=== PATIENT | male | born 1975 | race Caucasian/White ===

== ENCOUNTER 2020-05-23 05:04 | Day surgery (SDC) | payer BC ==
[2020-05-18 14:01] VITALS: BMI 25.8
[2020-05-23 10:53] VITALS: TEMP 97.9
[2020-05-23 11:17] VITALS: BP 107/69; PULSE 72
--- NOTE | 2020-05-24 15:33 | PATH ---
Surgical Pathology Report Patient Name: CARLOS ENRIQUE SHAIKH [facility]. Rec. #: [id number] /Age/Gender: 1975 (Age: 44) / M Account: [id number] Location: U-ENDOSCOPY Taken: 05/23/2020 Received: 05/23/2020 Reported: 05/24/2020 Physicians: Matteo Vera D.O. Specimen(s) Received A: GASTRIC POLYP B: ANTRUM, ANGULARIS C: BODY STOMACH Clinical History Abdominal pain Postoperative diagnosis: Gastric polyp, gastritis Final Diagnosis A. GASTRIC POLYP, BIOPSY: POLYPOID GASTRIC MUCOSA WITH FOCAL DILATED GLANDS AND MILD CHRONIC GASTRITIS. IMMUNOSTAIN FOR H. PYLORI IS NEGATIVE. NEGATIVE FOR INTESTINAL METAPLASIA. B. ANTRUM / ANGULARIS, BIOPSY: GASTRIC MUCOSA WITH MILD CHRONIC GASTRITIS. IMMUNOSTAIN FOR H. PYLORI IS NEGATIVE. NEGATIVE FOR INTESTINAL METAPLASIA. C. BODY, STOMACH, BIOPSY: GASTRIC MUCOSA WITH MILD CHRONIC GASTRITIS. IMMUNOSTAIN FOR H. PYLORI IS NEGATIVE. NEGATIVE FOR INTESTINAL METAPLASIA. Electronically Signed Rasta Rodriguez M.D. Gross Description A. Received in formalin, labeled "biopsy gastric polyp" is a jauregui, irregular portion of soft tissue measuring 0.4 cm. in greatest dimension. The specimen is submitted in toto in one cassette. B. Received in formalin, labeled "biopsy antrum/angularis" are 3 jauregui, irregular portions of soft tissue ranging from 0.1-0.5 cm. in greatest dimension. The specimens are submitted in toto in one cassette. C. Received in formalin, labeled "biopsy body of stomach" are 2 jauregui, irregular portions of soft tissue measuring 0.1 and 0.4 cm. in greatest dimension. The specimens are submitted in toto in one cassette. DL/05/23/2020 saudi/05/23/2020
== END 2020-05-23 12:10 | disposition home or self-care (01) ==
LOC: JASU-ENDO 05:04
PROVIDERS: ATTEND Internal Medicine Gastroenterology
PROC: 0DB78ZX Excision of Stomach, Pylorus, Via Natural or Artificial Opening Endoscopic, Diagnostic (ICD-10-PCS; 2020-05-23)
PROC: 0DB68ZX Excision of Stomach, Via Natural or Artificial Opening Endoscopic, Diagnostic (ICD-10-PCS; principal; 2020-05-23 12:00)
DX: K29.50 Unspecified chronic gastritis without bleeding (principal); K31.7 Polyp of stomach and duodenum
CPT/HCPCS: 88305-TC; 88342-TC

== ENCOUNTER 2020-06-22 05:04 | Day surgery (SDC) | payer BC ==
[2020-06-21 12:02] VITALS: BMI 25.8
[~2020-06-22 05:04] MED LIST: BUPIVACAINE HCL/PF 2.5 MG/ML - 30 ML VIAL IJ ONE
[2020-06-22 08:11] LABS: POTASSIUM 4.2 mmol/L (3.5-5.1)
[2020-06-22 08:12] LABS: CALCIUM 8.7 mg/dL (8.5-10.1)
[2020-06-22 08:13] LABS: ALBUMIN 3.8 g/dl (3.4-5.0); BLOOD UREA NITROGEN 19.4 mg/dL (7-18)
[2020-06-22 08:16] LABS: CREATININE 1.2 mg/dL (0.55-1.3)
[2020-06-22 08:18] LABS: BILIRUBIN,TOTAL 0.5 mg/dL (0.2-1); TOT PROT 7.5 g/dl (6.4-8.2)
[2020-06-22 08:22] LABS: BASO % 0.7 % (0-2.0); EOS % 4.5 % (0-4.5); HEMATOCRIT 43.9 % (35.4-49); HEMOGLOBIN 14.8 GM/dL (11.7-16.9); LYMPH % 38.2 % (8-40); MCH 31.6 pg (25.7-33.7); MCHC 33.7 g/dl (32.0-35.9); MEAN CELL VOLUME 93.7 fl (80-96); MEAN PLT VOLUME 7.1 fl (7.5-11.1); MONO % 13.2 % (3.8-10.2); NEUT % 43.4 % (42.8-82.8); PLATELET COUNT 284 K/MM3 (134-434); RBC 4.69 M/mm3 (4.00-5.60); RDW 13.3 % (11.9-15.9); WHITE BLOOD COUNT 6.8 K/mm3 (4.0-10.0)
[2020-06-22] MEDS ORDERED: SUCCINYLCHOLINE CHLORIDE 200 MG/10 ML SYRINGE ONE (10:37)
[2020-06-22] MEDS ORDERED: MIDAZOLAM HCL 2 MG/2 ML SINGLE DOSE VIAL ONE (10:37)
[2020-06-22] MEDS ORDERED: DEXAMETHASONE SOD PHOSPHATE 4 MG/1 ML VIAL ONE ×2 (10:37→11:06)
[2020-06-22] MEDS ORDERED: PROPOFOL 20 ML ONE (10:37)
[2020-06-22] MEDS ORDERED: fentaNYL CITRATE 250 MCG/5 ML VIAL ONE (10:37)
[2020-06-22] MEDS ORDERED: ROCURONIUM BROMIDE 50 MG/5 ML SYRINGE ONE (10:37)
[2020-06-22] MEDS ORDERED: ceFAZolin SODIUM 1 GM VIAL ONE (11:04)
[2020-06-22] MEDS ORDERED: ceFAZolin SODIUM 1 GM VIAL IVPB ONE (11:06)
[2020-06-22] MEDS ORDERED: oxyCODONE HCL 5 MG TABLET PO PRN ×2 (12:05)
[2020-06-22] MEDS ORDERED: ONDANSETRON 4 MG/2 ML VIAL IVPUSH PRN (12:05)
[2020-06-22] MEDS ORDERED: BUPIVACAINE HCL/PF 2.5 MG/ML - 30 ML VIAL IJ ONE (12:06)
[2020-06-22] MEDS ORDERED: LACTATED RINGERS SOLUTION 1,000 ML IV SCH (12:15)
[2020-06-22] MEDS ORDERED: NEOSTIGMINE METHYLSULFATE 0.5 MG/ML - 10 ML MDV ONE (12:22)
[2020-06-22] MEDS ORDERED: GLYCOPYRROLATE 0.2 MG/1 ML VIAL ONE (12:22)
[2020-06-22] MEDS ORDERED: KETOROLAC TROMETHAMINE 30 MG/1 ML VIAL ONE (12:40)
[2020-06-22] MEDS ORDERED: KETOROLAC TROMETHAMINE 30 MG/1 ML VIAL IVPUSH ONE (12:48)
[2020-06-22] MEDS ORDERED: oxyCODONE HCL 5 MG TABLET ONE ×2 (13:44→18:20)
[2020-06-22 19:31] VITALS: BP 130/87; PULSE 89; TEMP 98.4
== END 2020-06-22 19:00 | disposition home or self-care (01) ==
LOC: JASU-SURG 05:04
PROVIDERS: ATTEND Surgery
PROC: 0FT44ZZ Resection of Gallbladder, Percutaneous Endoscopic Approach (ICD-10-PCS; principal; 2020-06-22 09:30)
DX: K80.10 Calculus of gallbladder with chronic cholecystitis without obstruction (principal)
CPT/HCPCS: 36415; 80053; 85025; 88304-TC; 94760

== ENCOUNTER 2021-01-01 00:19 | Emergency (ER) | payer BC ==
[2021-01-01 00:27] VITALS: BP 124/87; PULSE 98; TEMP 98.3; BMI 25.1
[2021-01-01] MEDS ORDERED: DIPHTH,PERTUSS(ACELL),TET 0.5 ML DISP.SYRIN IM ONE ×2 (00:27→00:52)
[2021-01-01] MEDS ORDERED: CEPHALEXIN MONOHYDRATE 500 MG CAPSULE (UD) PO ONE (00:32)
[2021-01-01] MEDS ORDERED: CEPHALEXIN MONOHYDRATE 500 MG CAPSULE (UD) ONE (00:52)
== END 2021-01-01 01:05 | disposition home or self-care (01) ==
LOC: FER 00:19
PROC: 09QKXZZ Repair Nasal Mucosa and Soft Tissue, External Approach (ICD-10-PCS; principal; 2021-01-01)
PROC: 3E0234Z Introduction of Serum, Toxoid and Vaccine into Muscle, Percutaneous Approach (ICD-10-PCS; 2021-01-01)
DX: S01.21XA Laceration without foreign body of nose, initial encounter (principal)
CPT/HCPCS: 90715; 99284-25

== ENCOUNTER 2021-01-05 13:10 | Emergency (ER) | payer BC ==
[2021-01-05 13:17] VITALS: BP 130/94; PULSE 83; TEMP 98.2; BMI 25.8
== END 2021-01-05 14:00 | disposition home or self-care (01) ==
LOC: FER 13:10
PROC: 09QKXZZ Repair Nasal Mucosa and Soft Tissue, External Approach (ICD-10-PCS; principal; 2021-01-05)
DX: T81.30XA Disruption of wound, unspecified, initial encounter (principal); Z48.02 Encounter for removal of sutures
CPT/HCPCS: 99282-25